=== PATIENT | male | born 1985 | race Two or more races ===

== ENCOUNTER 2024-02-28 22:17 | Inpatient (IN) | payer MEDICARE, OTHER ==
[~2024-02-28] VITALS: Ht 170.2 cm; Wt 96.3 kg
[2024-02-28] MEDS ORDERED: ONDANSETRON HCL/PF 4 MG/2 ML VIAL ONE (23:16)
[2024-02-28] MEDS ORDERED: HYDROMORPHONE 1 MG/1 ML DISP.SYRIN ONE (23:16)
[2024-02-28 23:18] LABS: BASOPHILS % (AUTO) 0.1 % (0.0-2.0); EOSINOPHILS % (AUTO) 0.3 % (0.0-6.0); HEMATOCRIT 43 % (39-51); HEMOGLOBIN 14.8 g/dL (13.5-17.5); LYMPHOCYTES # (AUTO) 1.7 K/uL (0.8-4.8); LYMPHOCYTES % (AUTO) 12.8 % (20.0-44.0); MEAN CORPUSCULAR HEMOGLOBIN 28 PG (26.0-33.0); MEAN CORPUSCULAR HGB CONC 35 g/dl (31.0-36.0); MEAN CORPUSCULAR VOLUME 82 fL (80-96); MONOCYTES % (AUTO) 7.8 % (2.0-12.0); NEUTROPHILS # (AUTO) 10.5 K/uL (1.8-8.9); PLATELET COUNT (AUTO) 268 K/uL (150-450); RED BLOOD CELL COUNT(AUTO) 5.25 MIL/uL (4.5-6.0); RED CELL DISTRIBUTION WIDTH 13.6 % (11.5-15.0); WHITE BLOOD COUNT (AUTO) 13.3 K/uL (4.3-11.0)
[2024-02-28] MEDS: HYDROMORPHONE INJ 2 MG/ML DISP.SYRIN IV ONE (23:19)
[2024-02-28] MEDS: ONDANSETRON HCL/PF 4 MG/2 ML VIAL IVP ONE (23:19)
[2024-02-28 23:33] LABS: CALCIUM, SERUM 9.4 mg/dL (8.5-10.1); INR 0.97 (0.91-1.10); PARTIAL THROMBOPLASTIN TIME 23.2 SEC (24.3-34.3); POTASSIUM 3.7 mmol/L (3.5-5.1); PROTHROMBIN TIME 10.3 SECS (9.2-11.1)
[2024-02-28 23:38] LABS: ALBUMIN 3.6 g/dL (3.4-5.0); BILIRUBIN,DIRECT 0.1 mg/dL (0.0-0.2); BILIRUBIN,TOTAL 0.5 mg/dL (0.2-1.0); TOTAL PROTEIN, SERUM 7.3 g/dL (6.4-8.2)
[2024-02-29] MEDS: HYDROMORPHONE 1 MG/1 ML DISP.SYRIN IV ONE (00:16)
[2024-02-29] MEDS ORDERED: ONDANSETRON HCL/PF 4 MG/2 ML VIAL IVP PRN (00:30)
[2024-02-29] MEDS ORDERED: DEXTROSE 50%-WATER 50 ML DISP.SYRIN IV PRN (01:00)
[2024-02-29] MEDS ORDERED: METF-442 PO (01:40)
[2024-02-29] MEDS ORDERED: ROSU5TAB PO (01:40)
[2024-02-29 02:00] VITALS: BP 139/91; TEMP 98.2; O2SAT 98
[2024-02-29 02:15] VITALS: BP 139/91; TEMP 98.2; O2SAT 98
[2024-02-29] MEDS: IV D5/0.45 NACL 1,000 ML IV PRN (02:52)
[2024-02-29] MEDS: HYDROMORPHONE 1 MG/1 ML DISP.SYRIN IV PRN (04:50)
[2024-02-29] MEDS: BLOOD SUGAR DIAGNOSTIC 1 EACH STRIP IN SCH (05:47)
[2024-02-29] MEDS: INSULIN REGULAR, HUMAN 100 UNIT/ML 3 ML VIAL SQ PRN (05:51)
[2024-02-29 08:00] VITALS: BP 133/90; TEMP 98.1; O2SAT 97
[2024-02-29] MEDS ORDERED: HYDROMORPHONE INJ 2 MG/ML DISP.SYRIN ONE (14:08)
[2024-02-29] MEDS ORDERED: FENTANYL PF 100MCG/2ML AMPUL ONE (14:08)
[2024-02-29] MEDS ORDERED: MIDAZOLAM HCL 2 MG/2ML VIAL ONE (14:09)
[2024-02-29] MEDS ORDERED: LABETALOL HCL IV 100MG VIAL ONE (15:03)
[2024-02-29 16:00] VITALS: BP 145/93; TEMP 98.1; O2SAT 95
[2024-02-29 16:46] LABS: HEMOGLOBIN 14.3 g/dL (13.5-17.5)
[2024-02-29 20:00] VITALS: BP 128/82; TEMP 97.7; O2SAT 98
[2024-02-29] MEDS: ANCEF 1 GM/50 ML D5W IV SCH (21:10)
[2024-03-01 06:59] LABS: BASOPHILS % (AUTO) 0.1 % (0.0-2.0); EOSINOPHILS % (AUTO) 0.1 % (0.0-6.0); HEMATOCRIT 40 % (39-51); HEMOGLOBIN 13.6 g/dL (13.5-17.5); LYMPHOCYTES # (AUTO) 1.3 K/uL (0.8-4.8); MEAN CORPUSCULAR HEMOGLOBIN 28 PG (26.0-33.0); MEAN CORPUSCULAR HGB CONC 34 g/dl (31.0-36.0); MEAN CORPUSCULAR VOLUME 82 fL (80-96); MONOCYTES # (AUTO) 0.9 K/uL (0.1-1.30); MONOCYTES % (AUTO) 10.9 % (2.0-12.0); NEUTROPHILS # (AUTO) 6.3 K/uL (1.8-8.9); NEUTROPHILS % (AUTO) 73.9 % (43.0-81.0); PLATELET COUNT (AUTO) 250 K/uL (150-450); RED BLOOD CELL COUNT(AUTO) 4.81 MIL/uL (4.5-6.0); RED CELL DISTRIBUTION WIDTH 13.5 % (11.5-15.0); WHITE BLOOD COUNT (AUTO) 8.5 K/uL (4.3-11.0)
[2024-03-01 07:30] VITALS: BP 126/84; TEMP 97.5; O2SAT 99
[2024-03-01 07:42] LABS: CALCIUM, SERUM 8.6 mg/dL (8.5-10.1); CREATININE 0.6 mg/dL (0.6-1.3); MAGNESIUM 2.5 mg/dL (1.8-2.4); PHOSPHORUS 3.3 mg/dL (2.5-4.9); POTASSIUM 3.9 mmol/L (3.5-5.1)
[2024-03-01 10:23] VITALS: O2SAT 98
[2024-03-01 16:00] VITALS: BP 121/85; TEMP 98.6; O2SAT 98
[2024-03-01 20:31] VITALS: BP 138/89; TEMP 98.8; O2SAT 98
[2024-03-01] MEDS: ATORVASTATIN 10 MG TABLET PO SCH (21:21)
[2024-03-02 06:30] LABS: BASOPHILS % (AUTO) 0.2 % (0.0-2.0); EOSINOPHILS # (AUTO) 0.1 K/uL (0.0-0.7); EOSINOPHILS % (AUTO) 0.6 % (0.0-6.0); HEMATOCRIT 40 % (39-51); HEMOGLOBIN 13.8 g/dL (13.5-17.5); LYMPHOCYTES # (AUTO) 1.8 K/uL (0.8-4.8); MEAN CORPUSCULAR HEMOGLOBIN 28 PG (26.0-33.0); MEAN CORPUSCULAR HGB CONC 34 g/dl (31.0-36.0); MEAN CORPUSCULAR VOLUME 81 fL (80-96); MONOCYTES # (AUTO) 0.9 K/uL (0.1-1.30); MONOCYTES % (AUTO) 10.3 % (2.0-12.0); NEUTROPHILS # (AUTO) 5.9 K/uL (1.8-8.9); NEUTROPHILS % (AUTO) 67.9 % (43.0-81.0); PLATELET COUNT (AUTO) 223 K/uL (150-450); RED BLOOD CELL COUNT(AUTO) 4.97 MIL/uL (4.5-6.0); RED CELL DISTRIBUTION WIDTH 13.9 % (11.5-15.0); WHITE BLOOD COUNT (AUTO) 8.8 K/uL (4.3-11.0)
[2024-03-02 06:33] LABS: CALCIUM, SERUM 9.4 mg/dL (8.5-10.1); CREATININE 0.5 mg/dL (0.6-1.3); POTASSIUM 3.8 mmol/L (3.5-5.1)
[2024-03-02 07:30] VITALS: BP 115/82; TEMP 97.5; O2SAT 98
[2024-03-02 08:02] LABS: MAGNESIUM 2.3 mg/dL (1.8-2.4); PHOSPHORUS 3.2 mg/dL (2.5-4.9)
[2024-03-02] MEDS: METFORMIN 500 MG TABLET PO SCH (09:31)
[2024-03-02] MEDS: DOCUSATE SODIUM LIQ 100 MG/10 ML UDC PO SCH (13:05)
== END 2024-03-02 15:00 | disposition home health service (06) | DRG 482 ==
LOC: ER 22:19 → MED 02-29 01:19
PROVIDERS: ADMIT Student in an Organized Health Care Education/Training Program; ATTEND Student in an Organized Health Care Education/Training Program
PROC: 0QS604Z Reposition Right Upper Femur with Internal Fixation Device, Open Approach (ICD-10-PCS; principal; 2024-02-29)
DX: S72.011A Unspecified intracapsular fracture of right femur, initial encounter for closed fracture (principal); E11.9 Type 2 diabetes mellitus without complications; W18.2XXA Fall in (into) shower or empty bathtub, initial encounter; R62.50 Unspecified lack of expected normal physiological development in childhood; Y93.E1 Activity, personal bathing and showering; Y92.009 Unspecified place in unspecified non-institutional (private) residence as the place of occurrence of the external cause
CPT/HCPCS: 36415; 71045-TC; 73501; 73502; 73700-TC; 80048-TC; 80076-TC; 82962-TC; 83735-TC; 84100-TC; 85025-TC; 85027-TC; 85730-TC; 86850-TC; 97110-TC; 97530-TC; A6209; C1713; C1776; G0378; J0690; J1100; J1170; J1815; J2250; J2405; J2704; J2765; J3010; J3490; J7030; J7050; J7060